=== PATIENT | male | born 1995 | race Caucasian/White ===

== ENCOUNTER 2018-06-30 15:56 | Emergency (ER) | payer BC, OTHER ==
[2018-06-30 15:56] VITALS: BMI 23.2
[2018-06-30 16:05] VITALS: BP 149/82; PULSE 72; RESP 18; TEMP 98; O2SAT 99
[2018-06-30] MEDS ORDERED: Amoxicillin-Clav 875-125 mg Tab PO STA (16:18)
[2018-06-30] MEDS ORDERED: Tdap Vaccine 0.5 ml Vial (10-64 yrs) IM ONE ×2 (16:24→16:34)
[2018-06-30] MEDS ORDERED: Povidone Iodine Oint 10% Foilpak UD TOP ONE (16:27)
--- NOTE | 2018-06-30 16:27 | ED PDOC ---
HPI: General Adult Time Seen by Provider: 06/30/18 16:24 Chief Complaint (Nursing): Bite Chief Complaint (Provider): DOGBITE History Per: Patient (23 Y/O MALE HERE FOR EVALUATION OF DOGBITE WOUNDS GENERALIZED UPPER AND LOWER EXTREMITIES FROM HIS DOG. UNSURE OF TETANUS STATUS. RABIES VACCINE SERIES UP TO DATE WITH PERSONAL DOG.) Past Medical History Reviewed: Historical Data, Nursing Documentation, Vital Signs Vital Signs: Last Vital Signs Temp 98 F 06/30/18 16:03 Pulse 72 06/30/18 16:03 Resp 18 06/30/18 16:03 BP 149/82 06/30/18 16:03 Pulse Ox 99 06/30/18 16:03 - Family History Family History: States: No Known Family Hx - Home Medications Home Medications: Ambulatory Orders Medication Instructions Recorded Amoxicillin/Clavulanate [Augmentin 1 tab PO BID #20 tab 06/30/18 875 MG-125 MG] - Allergies Allergies/Adverse Reactions: Allergies Allergy/AdvReac Type Severity Reaction Status Date / Time No Known Allergies Allergy Verified 06/30/18 16:03 Review of Systems ROS Statement: Except As Marked, All Systems Reviewed And Found Negative Skin: Positive for: Other (LACERATIONS) Physical Exam - Reviewed Nursing Documentation Reviewed: Yes Vital Signs Reviewed: Yes - Physical Exam Appears: Positive for: Well, Non-toxic, No Acute Distress Head Exam: Positive for: ATRAUMATIC, NORMAL INSPECTION, NORMOCEPHALIC Skin: Positive for: Warm. Negative for: Normal Color (MULTIPLE SUPERFICIAL LACERATIONS UPPER EXTREMITIES.) Eye Exam: Positive for: EOMI, Normal appearance, PERRL ENT: Positive for: Normal ENT Inspection Neck: Positive for: Normal, Painless ROM Cardiovascular/Chest: Positive for: Regular Rate, Rhythm Respiratory: Positive for: CNT, Normal Breath Sounds Gastrointestinal/Abdominal: Positive for: Normal Exam, Soft Back: Positive for: Normal Inspection Extremity: Positive for: Normal ROM Neurologic/Psych: Positive for: Alert, Oriented - ECG O2 Sat by Pulse Oximetry: 99 - Progress ED Course And Treament: WOUND CLEANSED WELL IN ED. BACITRACIN OINTMENT PLACED ON WOUNDS. Disposition - Clinical Impression Clinical Impression: Animal bite wound - Patient ED Disposition Is Patient to be Admitted: No - Disposition Disposition: Routine/Home Disposition Time: 16:28 Condition: FAIR Additional Instructions: FOLLOW UP WITH PMD/ED/OR URGENT CARE IN 2 DAYS FOR WOUND CHECK Prescriptions: Amoxicillin/Clavulanate [Augmentin 875 MG-125 MG] 1 tab PO BID #20 tab Instructions: Animal Bites (DC) Forms: [facility] ED School/Work Excuse
[2018-06-30] MEDS ORDERED: Amoxicillin-Clav 875-125 mg Tab PO ONE (16:33)
== END 2018-06-30 16:51 | disposition home or self-care (01) ==
LOC: H.ER 15:56
DX: T14.8XXA Other injury of unspecified body region, initial encounter (principal); W54.0XXA Bitten by dog, initial encounter; Y92.89 Other specified places as the place of occurrence of the external cause